=== PATIENT | male | born 1980 | race Caucasian/White ===

== ENCOUNTER 2016-11-16 14:07 | Emergency (ER) | payer BC, OTHER, SELFPAY ==
[~2016-11-16] VITALS: Ht 188 cm; Wt 111.1 kg
[~2016-11-16 14:07] MED LIST: GABA400C PO; OXYC5TAB2 PO; celebrex PO
[2016-11-16] MEDS ORDERED: APAP325T PO (14:29)
[2016-11-16] MEDS ORDERED: KETOROLAC 60 MG/2 ML VIAL (J1885) IM ONE (14:45)
[2016-11-16 15:06] VITALS: BP 125/72
[2016-11-16] MEDS ORDERED: ACET30TAB PO (15:13)
--- NOTE | 2016-11-16 15:15 | REP ---
CT Head without contrast HISTORY: Trauma COMPARISON: 12/22/2014 There is no intraparenchymal hemorrhage, acute infarct, mass or midline shift. The ventricular system is normal in appearance. There is no extra cerebral collection. There is no fracture. The visualized sinuses are clear. IMPRESSION: There is no intracranial lesion. Signed by Micheal Ross MD 11/16/2016 03:07 P
== END 2016-11-16 15:34 | disposition home or self-care (01) ==
LOC: M ED 14:55
DX: S06.0X0A Concussion without loss of consciousness, initial encounter (principal); W51.XXXA Accidental striking against or bumped into by another person, initial encounter; Y92.321 Football field as the place of occurrence of the external cause; Y93.61 Activity, american tackle football; Y99.8 Other external cause status; R53.83 Other fatigue; G89.29 Other chronic pain; Z88.8 Allergy status to other drugs, medicaments and biological substances
CPT/HCPCS: 70450; 96372; 99282; J1885